=== PATIENT | male | born 1970 | race Caucasian/White ===

== ENCOUNTER 2018-06-28 13:54 | Emergency (ER) | payer MEDICARE, OTHER ==
[2018-06-28] MEDS ORDERED: ONDANSETRON HCL INJ/PF 4 MG/2 ML SDV IV ONE (15:48)
[2018-06-28] MEDS ORDERED: KETOROLAC TROMETHAMINE INJ/PF 30 MG/1 ML SDV IV ONE (15:49)
--- NOTE | 2018-06-28 15:50 | ER Document Report ---
ED Medical Screen (RME) - General Chief Complaint: Abdominal Pain Stated Complaint: ABDOMINAL PAIN Time Seen by Provider: 06/28/18 15:47 Notes: Patient is complaining of pain in his epigastric region which began at 2 AM this morning and awakened him from sleep. Is been nauseated but not vomiting. Feeling somewhat dizzy. Has a problem with constipation, having not gone for 2 days. Has never had this pain before. Denies fever. No chest pains. Patient does have a history of GERD. Does not drink alcohol. Patient has a history of a spinal cord injury which has required 7 surgeries in the past. TRAVEL OUTSIDE OF THE [place] IN LAST 30 DAYS: No - Related Data Allergies/Adverse Reactions: gabapentin [From Neurontin] Allergy (Verified 06/28/18 13:57) venlafaxine [From Effexor] Allergy (Verified 06/28/18 13:57) Past Medical History - Social History Chew tobacco use (# tins/day): No Frequency of alcohol use: None Drug Abuse: None Renal/ Medical History: Denies: Hx Peritoneal Dialysis Past Surgical History: Reports: Hx Orthopedic Surgery - spinal surgery Physical Exam - Vital signs Vitals: Temp Pulse Resp BP Pulse Ox 97.7 F 67 18 115/61 99 06/28/18 14:00 06/28/18 14:00 06/28/18 14:00 06/28/18 14:00 06/28/18 14:00 Course - Vital Signs Vital signs: Temp Pulse Resp BP Pulse Ox 97.7 F 67 18 115/61 99 06/28/18 14:00 06/28/18 14:00 06/28/18 14:00 06/28/18 14:00 06/28/18 14:00
[2018-06-28 16:24] LABS: ABSOLUTE MONOCYTES (AUTO) 0.6 10^3/uL (0.1-1.4); ABSOLUTE NEUT (AUTO) 7.8 10^3/uL (1.7-8.2); BASOPHILS % (AUTO) 0.2 % (0-2); EOSINOPHILS % (AUTO) 0.5 % (0-6); HEMATOCRIT 41.9 % (37.9-51.0); HEMOGLOBIN 15.1 g/dL (13.5-17.0); LYMPHOCYTES % (AUTO) 10.8 % (13-45); MEAN CORPUSCULAR HEMOGLOBIN 32.3 pg (27.0-33.4); MEAN CORPUSCULAR VOLUME 90 fl (80-97); MONOCYTES % (AUTO) 6.7 % (3-13); PLATELET COUNT 286 10^3/uL (150-450); RED BLOOD COUNT 4.67 10^6/uL (4.35-5.55); RED CELL DISTRIBUTION WIDTH 12.6 % (11.5-14.0); SEGMENTED NEUTROPHILS % (AUTO) 81.8 % (42-78); TOTAL CELLS COUNTED % (AUTO) 100 %; WHITE BLOOD COUNT 9.6 10^3/uL (4.0-10.5)
[2018-06-28 16:43] LABS: ALANINE AMINOTRANSFERASE 30 U/L (21-72); ALBUMIN 4.4 g/dL (3.5-5.0); ALKALINE PHOSPHATASE 59 U/L (38-126); ANION GAP 9 (5-19); ASPARTATE AMINO TRANSFERASE 22 U/L (17-59); BILIRUBIN,DIRECT 0.1 mg/dL (0.0-0.4); BILIRUBIN,TOTAL 1.8 mg/dL (0.2-1.3); BLOOD UREA NITROGEN 6 mg/dL (7-20); CALCIUM 9.5 mg/dL (8.4-10.2); CARBON DIOXIDE 33 mmol/L (22-30); CHLORIDE 95 mmol/L (98-107); GLUCOSE 122 mg/dL (75-110); LIPASE 62.6 U/L (23-300); POTASSIUM 3.7 mmol/L (3.6-5.0); SODIUM 136.8 mmol/L (137-145); TOTAL PROTEIN 6.9 g/dL (6.3-8.2)
[2018-06-28 17:06] LABS: APPEARANCE,URINE CLEAR; BILIRUBIN,URINE NEGATIVE (NEGATIVE); COLOR,URINE COLORLESS; GLUCOSE, URINE NEGATIVE (NEGATIVE); KETONES,URINE NEGATIVE (NEGATIVE); LEUKOCYTE ESTERASE,URINE NEGATIVE (NEGATIVE); NITRITE,URINE NEGATIVE (NEGATIVE); PROTEIN,URINE NEGATIVE (NEGATIVE); URINE SPECIFIC GRAVITY 1.002; UROBILINOGEN,URINE NEGATIVE mg/dL (<2.0)
[2018-06-28] MEDS ORDERED: METOCLOPRAMIDE HCL ORAL SOLN 10 MG/10 ML UDCUP PO ONE (17:34)
[2018-06-28] MEDS ORDERED: MAG HYDROX/AL HYDROX/SIMETH SUSP 30 ML UDCUP PO ONE (17:34)
[2018-06-28] MEDS ORDERED: LIDOCAINE 2% VISCOUS SOLN 20 ML UDCUP PO ONE (17:34)
--- NOTE | 2018-06-28 17:40 | ER Document Report ---
ED GI/ - General Chief Complaint: Abdominal Pain Stated Complaint: ABDOMINAL PAIN Time Seen by Provider: 06/28/18 15:47 Information source: Patient Notes: 48-year-old male with past medical history as recorded who presents today stating at around 2 AM while laying flat he felt some epigastric nonradiating "burning". Patient does have a history of reflux. He is not on Nexium. Patient denies any chest pain, cough, shortness of breath, fevers, vomiting, or diarrhea. TRAVEL OUTSIDE OF THE [place] IN LAST 30 DAYS: No - HPI Patient complains to provider of: Abdominal pain Onset: Other - See above Timing/Duration: Constant, Better Quality of pain: Burning Severity at maximum: Severe Severity in ED: Mild Pain Level: 2 Location: Other - See above Associated symptoms: Other - See above Exacerbated by: Denies Relieved by: Denies Similar symptoms previously: Yes Recently seen / treated by doctor: No - Related Data Allergies/Adverse Reactions: gabapentin [From Neurontin] Allergy (Verified 06/28/18 13:57) venlafaxine [From Effexor] Allergy (Verified 06/28/18 13:57) Past Medical History - Social History Smoking Status: Never Smoker Chew tobacco use (# tins/day): No Frequency of alcohol use: None Drug Abuse: None Family History: Reviewed & Not Pertinent Patient has suicidal ideation: No Patient has homicidal ideation: No Renal/ Medical History: Denies: Hx Peritoneal Dialysis Past Surgical History: Reports: Hx Orthopedic Surgery - spinal surgery Review of Systems - Review of Systems Constitutional: denies: Fever EENT: denies: Eye discharge, Nose discharge Cardiovascular: denies: Chest pain, Palpitations Respiratory: denies: Cough, Short of breath Gastrointestinal: denies: Diarrhea, Vomiting Genitourinary: denies: Dysuria Musculoskeletal: denies: Leg swelling Skin: Other - no hives. denies: Rash Neurological/Psychological: Other - no slurred speech -: Yes All other systems reviewed and negative Physical Exam - Vital signs Vitals: Temp Pulse Resp BP Pulse Ox 97.7 F 67 18 115/61 99 06/28/18 14:00 06/28/18 14:00 06/28/18 14:00 06/28/18 14:00 06/28/18 14:00 Notes: Reviewed vital signs and nursing note as charted by RN. CONSTITUTIONAL: Alert and oriented and responds appropriately to questions. Well-appearing; well-nourished HEAD: Normocephalic; atraumatic EYES: Sclerae non-icteric ENT: Normal nose; no rhinorrhea; moist mucous membranes; pharynx without lesions noted NECK: Supple without meningismus; non-tender; no cervical lymphadenopathy, no masses CARD: Regular rate and rhythm; no murmurs; symmetric distal pulses RESP: Normal chest excursion without splinting or tachypnea; breath sounds clear and equal bilaterally; no wheezes, no rhonchi, no rales ABD/GI: Normal bowel sounds; non-distended; soft, tenderness to palpation of the epigastric region with no rebound or guarding with a negative Rojas sign; no lower abdominal tenderness; no palpable organomegaly or masses BACK: The back appears normal with old surgical scars with no swelling, erythema, or induration EXT: Normal ROM in all joints; non-tender to palpation; no edema SKIN: No acute lesions noted NEURO: CN 2-12 intact; 5/5 bilateral upper and lower extremity strength with sensation intact to light touch PSYCH: The patient's mood and manner are appropriate. Grooming and personal hygiene are appropriate. Course - Re-evaluation Re-evalutation: Given the history and physical examination we will order basic labs, liver panel, lipase, provide a GI cocktail, obtain an ultrasound of the gallbladder, and reassess. Toradol was provided in triage. I will also add on a troponin and EKG given the possibility of a cardiac equivalent. I do believe that the patient has a low pretest probability for ACS, PE, or aortic dissection. 06/28/18 17:37 Labs as recorded. Troponin and EKG are pending. Patient's pain is improved. 06/28/18 18:38 Troponin as recorded. Belly exam is improved. No change in location of pain. - Vital Signs Vital signs: Temp Pulse Resp BP Pulse Ox 98.0 F 65 18 112/60 100 06/28/18 18:26 06/28/18 18:26 06/28/18 18:26 06/28/18 18:26 06/28/18 18:26 - Laboratory Result Diagrams: 06/28/18 16:00 06/28/18 16:00 Laboratory results interpreted by me: 06/28/18 06/28/18 16:00 16:00 Seg Neutrophils % 81.8 H Lymphocytes % 10.8 L Sodium 136.8 L Chloride 95 L Carbon Dioxide 33 H BUN 6 L Glucose 122 H Total Bilirubin 1.8 H Discharge - Discharge Referrals: ИИРНА HSIEH MD [Primary Care Provider] - Follow up as needed
--- NOTE | 2018-06-28 19:08 | RADIOLOGY REPORT (SQ) ---
EXAM DESCRIPTION: U/S ABDOMEN LIMITED W/O DOP COMPLETED DATE/TIME: 06/28/2018 6:58 pm REASON FOR STUDY: Epigastric pain; eval gall bladder COMPARISON: None. TECHNIQUE: Dynamic and static grayscale images acquired of the abdomen and recorded on PACS. Additio nal selected color Doppler and spectral images recorded. LIMITATIONS: None. FINDINGS: PANCREAS: No masses. Visualized pancreatic duct normal caliber. LIVER: No masses. Echotexture normal. LIVER VASCULATURE: Normal directional flow of the main portal vein and hepatic veins. GALLBLADDER: No stones. Normal wall thickness. No pericholecystic fluid. ULTRASOUND-DETECTED MEDEROS'S SIGN: Negative. INTRAHEPATIC DUCTS AND COMMON DUCT: CBD and intrahepatic ducts normal caliber. No filling defects. INFERIOR VENA CAVA: Normal flow. AORTA: No aneurysm. RIGHT KIDNEY: Normal size. Normal echogenicity. No solid or suspicious masses. No hydronephrosis. No calcifications. PERITONEAL AND RIGHT PLEURAL SPACE: No ascites or effusions. OTHER: No other significant findings. IMPRESSION: NORMAL RIGHT UPPER QUADRANT ULTRASOUND. TECHNICAL DOCUMENTATION: JOB ID: [id number]- All Rights Reserved Reading location - IP/workstation name: [email or web address]
--- NOTE | 2018-06-28 19:50 | ER Document Report ---
Doctor's Note Notes: 06/28/18 19:49 I independently evaluated this patient. He reports his severe epigastric abdominal pain has almost completely resolved. He states that he has had acid reflux in the past and has occasionally taken Nexium but does not take it regularly. He denies history of peptic ulcers or EGD in the past. Patient has a unremarkable right upper quadrant ultrasound. The remainder of his lab work is also unremarkable. I counseled him on dietary changes in case of underlying peptic ulcer disease. He will be started on omeprazole. He was told to follow closely with his primary care doctor for reevaluation and possible referral for EGD. He states that he is in agreement with this plan and feels much better. He is stable at discharge.
[2018-06-28 20:06] VITALS: BP 118/67
--- NOTE | 2018-06-29 15:00 | EKG REPORT ---
SEVERITY:- BORDERLINE ECG - SINUS RHYTHM BORDERLINE T ABNORMALITIES, ANT-LAT LEADS : Confirmed by: Lorena Aggarwal 29-Jun-2018 14:59:01
== END 2018-06-28 19:54 | disposition home or self-care (01) ==
LOC: ER 13:54
DX: R10.13 Epigastric pain (principal); Z87.19 Personal history of other diseases of the digestive system; Z88.6 Allergy status to analgesic agent; Z88.8 Allergy status to other drugs, medicaments and biological substances
CPT/HCPCS: 93005; 99284; 96374; 96375; 36415; 83690; 85025; 80053; 81001; 84484; 76705; 93010; J3490; J1885; A9270; J2405